=== PATIENT | female | born 1960 | race Caucasian/White ===

== ENCOUNTER 2022-08-01 09:27 | Emergency (ER) | payer BC, SELFPAY ==
[2022-08-01] VITALS (7 sets, daily range): BP systolic 92–139; BP diastolic 63–88; PULSE 56–92; RESP 16–18; TEMP 36.2; O2SAT 91–98; BMI 29.1
--- NOTE | 2022-08-01 09:54 | CRLHL7_ITS ---
For Patients: As a result of the Century Cures Act, medical imaging exams and procedure reports are released immediately into your electronic medical record. You may view this report before your referring provider. If you have questions, please contact your health care provider. HISTORY: Lower back pain. Right-sided abdominal tenderness. History of cholecystectomy. TECHNIQUE: CT abdomen and pelvis with IV contrast. 85 mL [id number] IV. COMPARISON: None. FINDINGS: Abdomen: Cholecystectomy. Mild intrahepatic bile duct dilation compatible with postcholecystectomy state. 4.9 cm cyst in the left lobe of the liver. No pancreatic mass or pancreatic duct dilation. No spleen lesions. Spleen is normal size. No adrenal nodules. Kidneys enhance symmetrically. No renal mass. No hydronephrosis. No dilated bowel. Colonic diverticulosis. Appendix is unremarkable. No free fluid. No lymphadenopathy. Mild atherosclerosis. Abdominal aorta is normal caliber. Pelvis: Uterus is absent. No lymphadenopathy. Musculoskeletal: Degenerative changes of the spine and hips. Lower chest: Mild atelectasis in both lung bases. IMPRESSION: 1. No acute abnormality in the abdomen or pelvis. 2. Colonic diverticulosis. Please note that all CT scans at this facility use dose modulation, iterative reconstruction, and/or weight-based dosing when appropriate to reduce radiation dose to as low as reasonably achievable. Dictated by Gulshan Alcantar MD @ 08/01/2022 12:38:51 PM (Electronically Signed)
[2022-08-01 10:12] LABS: Lactate* 1.4 mmol/L (0.5-1.9)
[2022-08-01 10:13] LABS: Basophils Absolute Auto 0.03 K/uL (0.00-0.30); Basophils Percent Auto 0.4 % (0.0-3.0); Eosinophils Absolute Auto 0.34 K/uL (0.00-0.50); Eosinophils Percent Auto 4.7 % (0.0-7.0); Hematocrit 43.6 % (33.0-51.0); Hemoglobin* 14.9 gm/dL (12.0-16.0); Lymphocytes Absolute Auto 1.72 K/uL (0.90-2.90); Mean Corpuscular HGB Conc 34 gm/dL (32-36); Mean Corpuscular Hemoglobin 31 pg (26-34); Mean Corpuscular Volume 90 fL (80-100); Monocytes Percent Auto 5.8 % (0.0-11.0); Neutrophils Absolute Auto 4.67 K/uL (1.7-7.0); Neutrophils Percent Auto 65.1 % (42.0-72.0); Platelet Count* 295 K/uL (140-440); Red Blood Count 4.84 m/uL (4.00-5.20); White Blood Count* 7.18 K/uL (4.50-11.00)
[2022-08-01 10:14] LABS: Slide Review Reflex No
[2022-08-01] MEDS: 0.9 % SODIUM CHLORIDE 1000 ml 1,000 ML IV (10:24)
[2022-08-01 10:26] LABS: Appearance Urine Clear (Clear); Bilirubin Urine Negative (Negative); Blood Urine Negative (Negative); Color Urine Yellow (Yellow); Glucose Urine Negative (Negative); Ketones Urine Negative (Negative); Leukocyte Esterase Urine Trace (Negative); Nitrite Urine Negative (Negative); Protein Urine Negative (Negative); Urobilinogen Urine 0.2 (0.2-1.0); pH Urine 6.5 (5.0-8.5)
[2022-08-01] MEDS: ONDANSETRON 2 MG/ML inj 4 MG IVP (10:27)
[2022-08-01] MEDS: KETOROLAC 30 MG/ML inj IVP (10:29)
[2022-08-01] MEDS: HYDROmorphone 0.5 mg/0.5 ml inj 1 MG IVP (10:31)
[2022-08-01 10:34] LABS: Bacteria Urine Few; RBC Urine 0-2 (0-2); Squamous Epithelial Cell Urine Few (None-Few)
[2022-08-01 10:35] LABS: Albumin* 4.5 g/dL (3.3-5.0); Chloride* 105 mmol/L (96-114); Sodium* 139 mmol/L (135-149)
[2022-08-01 10:36] LABS: Potassium* 3.9 mmol/L (3.6-5.1)
[2022-08-01 10:38] LABS: Aspartate Amino Transferase* 24 U/L (12-35); Bilirubin Direct* 0.1 mg/dL (0.0-0.5); Bilirubin Total* 0.5 mg/dL (0.1-1.5); Blood Urea Nitrogen* 19 mg/dL (7-30); Carbon Dioxide* 28 mmol/L (20-32); Creatinine* 0.8 mg/dL (0.5-1.5); Est. Creatinine Clearance* 53.16; Estimated Glomerular Filt Rate 84 ml/min; Total Protein* 7.4 g/dL (6.0-8.3)
[2022-08-01 10:39] LABS: Alanine Aminotransferase* 17 U/L (4-35); Alkaline Phosphatase* 98 U/L (40-150); Calcium* 9.5 mg/dL (8.4-10.6); Glucose* 100 mg/dL (60-115); Lipase* 86 U/L (23-300)
[2022-08-01 11:03] LABS: PCR FLU A Negative PCR FLU A (Negative); PCR FLU B Negative PCR FLU B (Negative); PCR RSV Negative PCR RSV (Negative)
[2022-08-01 11:08] LABS: C Reactive Protein* < 0.5 mg/dL (0.5-1.0)
--- NOTE | 2022-08-01 11:12 | ED_ITS ---
HPI - Back Pain/Injury General Date Seen: 08/01/22 Chief Complaint: Back Injury/Pain Stated Complaint: Low back pain Time Seen by Provider: 08/01/22 09:37 Source: patient and family Mode of arrival: ambulatory Limitations: no limitations History of Present Illness HPI Narrative: Patient is a 62-year-old female who presents here with lower back pain she has had since yesterday, not from an injury or fall, she had an episode of diarrhea while she was in eating breakfast yesterday and the pain is been increased since this episode. The diarrhea episode is and out of the ordinary for her as she occasionally has this, the back pain is. She describes pain in her lower back right were much worse than left, that radiates around her least pain in her right lower quadrant also too. She feels hot and cold, but no overt fever, she has had no nausea vomiting no further bowel movements denies any dysuria frequency, rashes, she denies any specific radiculopathy or pain that comes down the leg. No significant past history of leg or back issues. Presents here with her . History of a previous cholecystectomy, history of tubal ligation. MD elicited complaint: back pain Similar Symptoms Previously: No Location: lumbar spine Radiation: abdomen Exacerbating factors: none Relieving factors: none Associated symptoms: denies other symptoms Related Data Home Medications Medication Instructions Recorded Confirmed amlodipine 10 mg tablet 10 mg PO DAILY 08/01/22 08/01/22 atorvastatin 40 mg tablet 40 mg PO DAILY 08/01/22 08/01/22 citalopram 10 mg tablet 10 mg PO DAILY 08/01/22 08/01/22 gabapentin 300 mg capsule 300 mg PO DAILY 08/01/22 08/01/22 hydrochlorothiazide 12.5 mg capsule 12.5 mg PO DAILY 08/01/22 08/01/22 levothyroxine 75 mcg tablet 75 mcg PO DAILY 08/01/22 08/01/22 (Levo-T) losartan 100 mg tablet 100 mg PO DAILY 08/01/22 08/01/22 metoprolol succinate 25 mg 25 mg PO DAILY 08/01/22 08/01/22 tablet,extended release 24 hr oxybutynin chloride 5 mg 5 mg PO DAILY 08/01/22 08/01/22 tablet,extended release 24 hr Allergies Allergy/AdvReac Type Severity Reaction Status Date / Time codeine Allergy Mild hyper Verified 08/01/22 09:45 propoxyphene [From Darvon] Allergy Mild hyper Verified 08/01/22 09:45 Barbiturates Allergy Unknown Verified 08/01/22 09:45 penicillin V Allergy Unknown Verified 08/01/22 09:45 Sulfa (Sulfonamide Allergy Unknown Verified 08/01/22 09:45 Antibiotics) tetracycline Allergy Unknown Verified 08/01/22 09:45 prochlorperazine Allergy Vomiting Verified 08/01/22 09:45 [From Compazine] Review of Systems Status of ROS: Reports: 10 or more systems reviewed and unremarkable except as noted in History and below [facility] Social History Smoking Status: Never smoker Do you use any of these nicotine containing products: None Second hand tobacco smoke exposure: No How often do you have a drink containing alcohol: never How often do you have six or more drinks on one occasion: Never AUDIT-C Alcohol total score: 0 Non-prescribed substance use: denies use service: No Exam Narrative: Exam Narrative: Patient is seen in room 2 she is in [id number] distress, any laying backward since exacerbate her discomfort. She notes that her pain is more the back and right lower quadrant, Pupils are equal round reactive to light there is no scleral icterus redness or TMs are normal her oropharynx is normal neck is supple full range of motion, no meningismus, her chest is clear bilaterally with no wheezing crackles noted no signs of respiratory distress,. [id number] are normal there is no S3- S4 clicks murmurs or gallops noted. She has tenderness mild to moderate noted in the right lower quadrant, right-sided back pain is noted too. No peritoneal signs quiet bowel sounds are normally. SLR is are normal the 45? bilaterally, reflexes are normal in her lower extremities, cap refill is normal. Const: Vital Signs, click to edit/add: Vital Signs - 24 hr 08/01/22 09:29 08/01/22 11:00 08/01/22 11:30 Temperature 97.2 F L Pulse Rate [Right Pulse Oximeter] 70 60 67 Respiratory Rate 18 Blood Pressure [Ri ght Upper Arm] 139/88 105/78 116/73 Pulse Oximetry 98 97 94 Oxygen Delivery Me thod Room Air Room Air Room Air 08/01/22 12:18 08/01/22 12:30 08/01/22 12:45 Temperature Pulse Rate [Right Pulse Oximeter] 92 56 L 73 Respiratory Rate 18 16 18 Blood Pressure [Ri ght Upper Arm] 102/68 92/63 Pulse Oximetry 92 91 95 Oxygen Delivery Me thod Room Air Room Air Room Air Documenting provider has reviewed patient's vital signs: yes Course Course Hospital Course: Patient's pain improved with the use of the medications, her lab tests are all normal, including her CBC basic CRP and also UA. Further her CT scan of her abdomen did not show any acute intra-abdominal abnormalities, she does have a couple disc bulges noted on her CT at L4-L5 and at L5-S1 At this point I think it would be reasonable for her to go home, I did recheck her examination she still does not have signs of a significant radiculopathy although I suspect there is least a little bit of 1 going on with the radiation to the right lower quadrant. We will try some Percocet along with some prednisone for her discomfort comfort. Went over the signs and symptoms of worsening conditioning. I do recommend that she follow up with her primary care physician Dr.Rod Li Vital Signs Vital signs: Initial Vital Signs Temperature 97.2 F L 08/01/22 09:29 Temperature Source Temporal Artery Scan 08/01/22 09:29 Pulse Rate 70 08/01/22 09:29 Blood Pressure 139/88 08/01/22 09:29 Blood Pressure Mean 105 08/01/22 09:29 Blood Pressure Position Sitting 08/01/22 09:29 Pulse Oximetry 98 08/01/22 09:29 Oxygen Delivery Method 08/01/22 09:29 Vital Signs Temperature 97.2 F L 08/01/22 09:29 Pulse Rate 70 08/01/22 09:29 Blood Pressure 139/88 08/01/22 09:29 Pulse Oximetry 98 08/01/22 09:29 Oxygen Delivery Method 08/01/22 09:29 Temperature 97.2 F L 08/01/22 09:29 Pulse Rate 73 08/01/22 12:45 Respiratory Rate 18 08/01/22 12:45 Blood Pressure 92/63 08/01/22 12:30 Pulse Oximetry 95 08/01/22 12:45 Oxygen Delivery Method 08/01/22 12:45 MDM - Back Pain/Injury MDM Narrative Medical decision making narrative: During the evaluation of this patient I considered multiple differential diagnosis including life-threatening differentials which are appendicitis, aortic aneurysm, mesenteric ischemia, bowel perforation, ectopic , volvulus and bowel obstruction, other differential diagnosis include but are not limited to inflammatory bowel disease, cholecystitis, pancreatitis, hepatitis, gastritis, GERD, diverticulitis, peptic ulcer disease, pyelonephritis/UTI, renal colic/stone, pelvic inflammatory disease, cervicitis, endometritis, intrauterine , dysfunctional uterine bleeding, ovarian cyst/torsion, spontaneous as well as other etiologies Life-threatening differential diagnosis considered include: Cauda equina an epidural abscess, other differential diagnosis considered includes sprain, contusion, nerve root entrapment, radiculopathy, muscle spasm, urolithiasis, lumbar fracture, pyelonephritis, appendicitis, biliary colic, as well as other etiologies. The patient denies saddle anesthesia bowel or bladder incontinence or lower extremity weakness, recent weight loss, or history of malignancy. Medical Records Attestation: I reviewed the patient's medical records. Lab Data Attestation: I reviewed the patient's lab results. Labs: Lab Results 08/01/22 08/01/22 08/01/22 Range/Units 10:00 10:00 10:00 WBC 7.18 (4.50-11.00) K/uL RBC 4.84 (4.00-5.20) m/uL Hgb 14.9 (12.0-16.0) gm/dL Hct 43.6 (33.0-51.0) % MCV 90 (80-100) fL MCH 31 (26-34) pg MCHC 34 (32-36) gm/dL RDW Coeff of Sydnie 12.0 (11.5-15.5) % Plt Count 295 (140-440) K/uL Neut % (Auto) 65.1 (42.0-72.0) % Lymph % (Auto) 24.0 (20-44) % Bay % (Auto) 5.8 (0.0-11.0) % Eos % (Auto) 4.7 (0.0-7.0) % Baso % (Auto) 0.4 (0.0-3.0) % Neut # (Auto) 4.67 (1.7-7.0) K/uL Lymph # (Auto) 1.72 (0.90-2.90) K/uL Bay # (Auto) 0.40 (0.00-0.90) K/UL Eos # (Auto) 0.34 (0.00-0.50) K/uL Baso # (Auto) 0.03 (0.00-0.30) K/uL Abs Immat Gran (auto) 0.00 (0.00-0.30) K/uL Sodium 139 (135-149) mmol/L Potassium 3.9 (3.6-5.1) mmol/L Chloride 105 (96-114) mmol/L Carbon Dioxide 28 (20-32) mmol/L BUN 19 (7-30) mg/dL Creatinine 0.8 (0.5-1.5) mg/dL Estimated Creat Clear 53.16 Estimated GFR 84 ml/min Glucose 100 (60-115) mg/dL Lactate 1.4 (0.5-1.9) mmol/L Calcium 9.5 (8.4-10.6) mg/dL Total Bilirubin 0.5 (0.1-1.5) mg/dL Direct Bilirubin 0.1 (0.0-0.5) mg/dL AST 24 (12-35) U/L ALT 17 (4-35) U/L Alkaline Phosphatase 98 (40-150) U/L C-Reactive Protein < 0.5 L (0.5-1.0) mg/dL Total Protein 7.4 (6.0-8.3) g/dL Albumin 4.5 (3.3-5.0) g/dL Lipase 86 (23-300) U/L Urine Color (Yellow) Urine Appearance (Clear) Urine pH (5.0-8.5) Ur Specific [place] (1.000-1.030) Urine Protein (Negative) Urine Glucose (UA) (Negative) Urine Ketones (Negative) Urine Blood (Negative) Urine Nitrite (Negative) Urine Bilirubin (Negative) Urine Urobilinogen (0.2-1.0) Ur Leukocyte Esterase (Negative) Urine RBC (0-2) Urine WBC (0-5) Ur Squamous Epith Cells (None-Few) Urine Bacteria (None) SARS-CoV-2 (PCR) (Negative) Influenza Type A (PCR) (Negative) Influenza Type B (PCR) (Negative) RSV (PCR) (Negative) 08/01/22 08/01/22 Range/Units 10:15 10:15 WBC (4.50-11.00) K/uL RBC (4.00-5.20) m/uL Hgb (12.0-16.0) gm/dL Hct (33.0-51.0) % MCV (80-100) fL MCH (26-34) pg MCHC (32-36) gm/dL RDW Coeff of Sydnie (11.5-15.5) % Plt Count (140-440) K/uL Neut % (Auto) (42.0-72.0) % Lymph % (Auto) (20-44) % Bay % (Auto) (0.0-11.0) % Eos % (Auto) (0.0-7.0) % Baso % (Auto) (0.0-3.0) % Neut # (Auto) (1.7-7.0) K/uL Lymph # (Auto) (0.90-2.90) K/uL [place] # (Auto) (0.00-0.90) K/UL Eos # (Auto) (0.00-0.50) K/uL Baso # (Auto) (0.00-0.30) K/uL Abs Immat Gran (auto) (0.00-0.30) K/uL Sodium (135-149) mmol/L Potassium (3.6-5.1) mmol/L Chloride (96-114) mmol/L Carbon Dioxide (20-32) mmol/L BUN (7-30) mg/dL Creatinine (0.5-1.5) mg/dL Estimated Creat Clear Estimated GFR ml/min Glucose (60-115) mg/dL Lactate (0.5-1.9) mmol/L Calcium (8.4-10.6) mg/dL Total Bilirubin (0.1-1.5) mg/dL Direct Bilirubin (0.0-0.5) mg/dL AST (12-35) U/L ALT (4-35) U/L Alkaline Phosphatase (40-150) U/L C-Reactive Protein (0.5-1.0) mg/dL Total Protein (6.0-8.3) g/dL Albumin (3.3-5.0) g/dL Lipase (23-300) U/L Urine Color Yellow (Yellow) Urine Appearance Clear (Clear) Urine pH 6.5 (5.0-8.5) Ur Specific [place] 1.010 (1.000-1.030) Urine Protein Negative (Negative) Urine Glucose (UA) Negative (Negative) Urine Ketones Negative (Negative) Urine Blood Negative (Negative) Urine Nitrite Negative (Negative) Urine Bilirubin Negative (Negative) Urine Urobilinogen 0.2 (0.2-1.0) Ur Leukocyte Esterase Trace A (Negative) Urine RBC 0-2 (0-2) Urine WBC 2-5 (0-5) Ur Squamous Epith Cells Few (None-Few) Urine Bacteria Few A (None) SARS-CoV-2 (PCR) Negative SARS-CoV-2 (Negative) Influenza Type A (PCR) Negative PCR FLU A (Negative) Influenza Type B (PCR) Negative PCR FLU B (Negative) RSV (PCR) Negative PCR RSV (Negative) Discharge Plan Discharge Clinical Impression: Lumbar radiculopathy, Strain of lumbar region Patient Disposition: Home w/ Parent or Adult Condition: Improved Instructions: Low Back Strain (ED), Lumbar Radiculopathy (ED), Lower Back Exercises (ED), Cold Compress or Soak (ED) Prescriptions: No Action hydrochlorothiazide 12.5 mg capsule 12.5 mg PO DAILY metoprolol succinate 25 mg tablet extended release 24 hr 25 mg PO DAILY losartan 100 mg tablet 100 mg PO DAILY amlodipine 10 mg tablet 10 mg PO DAILY atorvastatin 40 mg tablet 40 mg PO DAILY levothyroxine [Levo-T] 75 mcg tablet 75 mcg PO DAILY citalopram 10 mg tablet 10 mg PO DAILY gabapentin 300 mg capsule 300 mg PO DAILY oxybutynin chloride 5 mg tablet extended release 24hr 5 mg PO DAILY Follow Up/Referrals: Abdulaziz Li MD [Primary Care Provider] - Stand Alone Forms: [employer] Info Instructions
[2022-08-01 11:42] LABS: SARS PCR* Negative SARS-CoV-2 (Negative)
== END 2022-08-01 13:20 | disposition home or self-care (01) ==
PROVIDERS: Emergency Provider Family Medicine; PCP Family Medicine
DX: M54.16 Radiculopathy, lumbar region (principal); S39.012A Strain of muscle, fascia and tendon of lower back, initial encounter
CPT/HCPCS: 36415; 74177; 80048; 80076; 81001; 83605; 83690; 85025; 86140; 87040; 87086; 87502; 87634; 87635; 96374; 96375; 99284; J1170; J1885; J2405; J7030; Q9967

== ENCOUNTER 2024-07-10 14:16 | Emergency (ER) | payer BC, SELFPAY ==
[2024-07-10 14:21] VITALS: BP 135/82; PULSE 60; RESP 16; TEMP 36.7; O2SAT 97; BMI 30.3
--- NOTE | 2024-07-10 14:31 | ED.GENADULT ---
HPI - General Adult General Date Seen: 07/10/24 Chief complaint: Chest Pain Stated complaint: Chest discomfort Time Seen by Provider: 07/10/24 14:30 History of Present Illness HPI narrative: 64-year-old female presenting to the ER today for chest discomfort. She has a past medical history of hypertension, dyslipidemia, hypothyroidism, restless leg syndrome. She also has a long history of peptic ulcer disease and for apparently even had ulcers as a young child. She is not currently on any anti acid medication. She has been noting symptoms of substernal chest discomfort radiating through to the back off and on for the past several weeks. They tend to happen a couple times a week and tend to happen after food. She believes they are probably related to acid reflux. Typically they get better when she takes [id number] antacids. She has not been to her doctor for these symptoms yet. Today she is having similar symptoms lasting much longer than normal. Symptoms started this morning after breakfast and has been persistent since then.. She developed some discomfort in the center of her chest that she felt was probably acid reflux. She took an [id number] antacid but it did not help. She still has the pain in the center of her chest which radiates through between her shoulder blades. She has been experiencing some acid reflux off and on for the past couple of weeks. Sometimes she feels little bit nauseous but has not vomited. She had 1 normal bowel movement today. It was nonbloody and nonmelanotic. All bowel movements recently have been normal. She is not having any fever. No cough. No shortness of breath. No palpitations. No swelling in her legs. No recent travel. No history of DVT or PE. Related Data Home Medications ?Medication ?Instructions ?Recorded ?Confirmed amlodipine 10 mg tablet 10 mg PO DAILY 08/01/22 07/10/24 atorvastatin 40 mg tablet 40 mg PO DAILY 08/01/22 07/10/24 citalopram 10 mg tablet 10 mg PO DAILY 08/01/22 07/10/24 gabapentin 300 mg capsule 300 mg PO DAILY 08/01/22 07/10/24 hydrochlorothiazide 12.5 mg capsule 12.5 mg PO DAILY 08/01/22 08/01/22 levothyroxine 75 mcg tablet 75 mcg PO DAILY 08/01/22 07/10/24 (Levo-T) losartan 100 mg tablet 100 mg PO DAILY 08/01/22 07/10/24 metoprolol succinate 25 mg 25 mg PO DAILY 08/01/22 07/10/24 tablet,extended release 24 hr oxybutynin chloride 5 mg 5 mg PO DAILY 08/01/22 07/10/24 tablet,extended release 24 hr ropinirole 0.5 mg tablet 0.5 mg PO QPM 07/10/24 07/10/24 Previous Rx's ?Medication ?Instructions ?Recorded omeprazole 40 mg capsule,delayed 40 mg PO DAILY #30 caps 07/10/24 release sucralfate 1 gram tablet (Carafate) 1 g PO TID PRN #60 tabs 07/10/24 Allergies Allergy/AdvReac Type Severity Reaction Status Date / Time codeine Allergy Mild hyper Verified 07/10/24 14:26 propoxyphene [From Darvon] Allergy Mild hyper Verified 07/10/24 14:26 Barbiturates Allergy Unknown Verified 07/10/24 14:26 penicillin V Allergy Unknown Verified 07/10/24 14:26 Sulfa (Sulfonamide Allergy Unknown Verified 07/10/24 14:26 Antibiotics) tetracycline Allergy Unknown Verified 07/10/24 14:26 levofloxacin [From Levaquin] Allergy Verified 07/10/24 14:26 prochlorperazine Allergy Vomiting Verified 07/10/24 14:26 [From Compazine] [facility] Social History Smoking Status: Never smoker Do you use any of these nicotine containing products: None Second hand tobacco smoke exposure: No How often do you have a drink containing alcohol: never How often do you have six or more drinks on one occasion: Never AUDIT-C Alcohol total score: 0 Non-prescribed substance use: denies use service: No Exam Narrative: Exam Narrative: Constitutional: Appears well-developed and well-nourished. Alert. Conversant. Non toxic. HENT: Head: Atraumatic. Nose: Nose normal. Mouth/Throat: Oral mucosa is clear and moist. no trismus. Pharynx normal. Tonsils symmetric. No tonsillar enlargement, erythema, or exudate. Eyes: Conjunctivae normal. EOM normal. Pupils equal, round, and reactive to light. No scleral icterus. Neck: Normal range of motion. Neck supple. No tracheal deviation present. No JVD Cardiovascular: Normal rate, regular rhythm. No gallop. No friction rub. No murmur heard. Symmetric radial and PT artery pulses Pulmonary/Chest: Effort normal. No stridor. No respiratory distress. No wheezes. No rales. No rhonchi . No tenderness. Abdominal: Soft. Bowel sounds normal. RUE: Normal range of motion. No tenderness. No deformity LUE: Normal range of motion. No tenderness. No deformity RLE: Normal range of motion. No edema. No tenderness. No deformity LLE: Normal range of motion. No edema. No tenderness. No deformity Lymph: No cervical adenopathy. Neurological: Alert and oriented to person, place, and time. Normal strength. CN II-VII intact. No sensory deficit. GCS eye subscore is 4. GCS verbal subscore is 5. GCS motor subscore is 6. Normal coordination Skin: Skin is warm and dry. No rash noted. No pallor. Normal capillary refill. Psychiatric: Normal mood. Normal affect. Const: Vital Signs, click to edit/add: Vital Signs - 24 hr 07/10/24 14:21 Temperature 98.1 F Pulse Rate [Pulse Oximeter] 60 Respiratory Rate 16 Blood Pressure [Ri t Upper Arm] 135/82 Pulse Oximetry 97 Oxygen Delivery Me thod Room Air Course Vital Signs Vital signs: Initial Vital Signs Temperature 98.1 F 07/10/24 14:21 Temperature Source Temporal Artery Scan 07/10/24 14:21 Pulse Rate 60 07/10/24 14:21 Respiratory Rate 16 07/10/24 14:21 Blood Pressure 135/82 07/10/24 14:21 Blood Pressure Mean 99 07/10/24 14:21 Blood Pressure Position Sitting 07/10/24 14:21 Pulse Oximetry 97 07/10/24 14:21 Oxygen Delivery Method Room Air 07/10/24 14:21 Vital Signs Temperature 98.1 F 07/10/24 14:21 Pulse Rate 60 07/10/24 14:21 Respiratory Rate 16 07/10/24 14:21 Blood Pressure 135/82 07/10/24 14:21 Pulse Oximetry 97 07/10/24 14:21 Oxygen Delivery Method Room Air 07/10/24 14:21 Temperature 98.1 F 07/10/24 14:21 Pulse Rate 60 07/10/24 14:21 Respiratory Rate 16 07/10/24 14:21 Blood Pressure 135/82 07/10/24 14:21 Pulse Oximetry 97 07/10/24 14:21 Oxygen Delivery Method Room Air 07/10/24 14:21 Medications Administered Medications: Discontinued Medications Generic Name Dose Route Start Last Admin Trade Name Adam PRN Reason Stop Dose Admin Lidocaine/Aluminum/Magnesium/Simeth 30 ml 07/10/24 14:32 07/10/24 14:47 Gi Cocktail (Visc Lido/Antacid) 30 Ml PO 07/10/24 14:33 30 ml ONCE ONE Administration Medical Decision Making MDM Narrative Medical decision making narrative: This patient presents to the ER today for evaluation of chest pain that began after breakfast this morning and persisted throughout the day since then. Differential was broad. No evidence of palpitations, syncope or other cardiac dysrhythmia. We considered possible ACS, however workup with EKG and troponin is negative. Given time since onset of symptoms, I do not think the patient needs to be admitted for further sets of enzymes. EKG shows no evidence for pericarditis. Clinical presentation not suggestive of myocarditis. Chest x-ray shows no evidence for pneumonia, pneumothorax, pulmonary edema, pleural effusion, rib fracture, cardiomegaly. Mediastinum is normal on the x-ray. The patient has no ripping or tearing pain through to the back and has symmetric pulses on exam, no other acute neuro findings so I doubt aortic dissection. Risk of radiation and contrast exposure would outweigh the benefit of CT angiogram. We considered PE for this patient. She is overall low risk. Other than H is negative by PERC. There is no hypoxia, tachycardia, so would hold off on D-dimer testing or CT PA for now. No wheezing or bronchospasm to suggest COPD/asthma. No signs of chest wall cellulitis, shingles, injury. She does have a long history of stomach acid problems and has been having episodes of GERD for the past several weeks leading up to this. She believes that her current pain is probably related to his office again today. She did have improvement with GI cocktail. At this point with workup for other conditions so far reassuring, I do not think she needs hospitalization. Will try her empirically on a course of PPI and also Carafate that she can use p.r.n.. She follow-up with her doctors at the [facility] soon as possible for re-evaluation and may need EGD to confirm endoscopy. With reasonable clinical confidence, I think the patient is safe for outpatient follow up. Discussed return precautions, especially with worsening or changing pain.. Questions answered. Patient voices comfort with the plan. Lab Data Labs: Lab Results 07/10/24 07/10/24 Range/Units 14:32 15:00 WBC 9.48 (4.50-11.00) K/uL RBC 4.58 (4.00-5.20) m/uL Hgb 13.9 (12.0-16.0) gm/dL Hct 42.4 (33.0-51.0) % MCV 93 (80-100) fL MCH 30 (26-34) pg MCHC 33 (32-36) gm/dL RDW Coeff of Sydnie 14.1 (11.5-15.5) % Plt Count 281 (140-440) K/uL Neut % (Auto) 58.7 (42.0-72.0) % Lymph % (Auto) 31.8 (20-44) % Hamlin % (Auto) 5.7 (0.0-11.0) % Eos % (Auto) 3.1 (0.0-7.0) % Baso % (Auto) 0.6 (0.0-3.0) % Neut # (Auto) 5.57 (1.7-7.0) K/uL Lymph # (Auto) 3.01 H (0.90-2.90) K/uL Hamlin # (Auto) 0.50 (0.00-0.90) K/UL Eos # (Auto) 0.29 (0.00-0.50) K/uL Baso # (Auto) 0.06 (0.00-0.30) K/uL Abs Immat Gran (auto) 0.01 (0.00-0.30) K/uL Imm/Tot Granulo (auto) 0.1 % Sodium 139 (135-149) mmol/L Potassium 3.5 L (3.6-5.1) mmol/L Chloride 106 (96-114) mmol/L Carbon Dioxide 27 (20-32) mmol/L Anion Gap 6 L (7-15) mEq/L BUN 18 (7-30) mg/dL Creatinine 0.8 (0.5-1.5) mg/dL Estimated Creat Clear 51.81 Estimated GFR 83 ml/min Glucose 103 (60-115) mg/dL Calcium 9.3 (8.4-10.6) mg/dL Total Bilirubin 0.2 (0.1-1.5) mg/dL AST 29 (12-35) U/L ALT 18 (4-35) U/L Alkaline Phosphatase 101 (40-150) U/L Total Protein 7.1 (6.0-8.3) g/dL Albumin 4.3 (3.3-5.0) g/dL Lipase 134 (23-300) U/L POC Troponin I 0.01 (0.01-0.04) ng/ml Imaging Data Chest x-ray: Attestation: I have reviewed the pertinent imaging results. Radiologist's impression: IMPRESSION: No acute thoracic findings. ECG Data Attestation: I personally reviewed and interpreted this ECG as follows: Interpretation: Sinus bradycardia Rate: 56 FL: 182 QRS axis: Normal axis. No pathologic Q-waves. ST segment/T wave: No ST segment elevation or depression QTc: 449 Discharge Plan Discharge Clinical Impression: Chest pain Patient Disposition: Home, Self-Care Condition: Stable Instructions: GERD (Gastroesophageal Reflux Disease) (DC) Additional Instructions: As we discussed, so further workup for your heart looks good. No signs of heart attack. We suspect that your pain is probably being caused by acid refluxing into her esophagus. At this time we have not been able to prove that stomach acid is the cause of your pain. It is very important for you to follow-up with her doctor at the [facility] and arrange an endoscopy to fully evaluate your esophagus. In the meantime, come back to the ER if you have worsening pain, trouble breathing, dizziness or fainting, high fever, or any worsening symptoms. Use the Prilosec once every day to help reduce stomach acid and refluxing acid. You can also use the Carafate as needed if you are having episodes of pain. If you have more severe pain, or any other concerning symptoms remember to come back to the ER right away. Prescriptions: New omeprazole 40 mg capsule,delayed release(DR/EC) 40 mg PO DAILY Qty: 30 2RF sucralfate [Carafate] 1 gram tablet 1 g PO TID PRNQty: 60 0RF No Action hydrochlorothiazide 12.5 mg capsule 12.5 mg PO DAILY metoprolol succinate 25 mg tablet extended release 24 hr 25 mg PO DAILY losartan 100 mg tablet 100 mg PO DAILY amlodipine 10 mg tablet 10 mg PO DAILY atorvastatin 40 mg tablet 40 mg PO DAILY levothyroxine [Levo-T] 75 mcg tablet 75 mcg PO DAILY citalopram 10 mg tablet 10 mg PO DAILY gabapentin 300 mg capsule 300 mg PO DAILY oxybutynin chloride 5 mg tablet extended release 24hr 5 mg PO DAILY ropinirole 0.5 mg tablet 0.5 mg PO QPM Follow Up/Referrals: Abdulaziz Quintero MD [Primary Care Provider] - Stand Alone Forms: [facility] Info Instructions
[2024-07-10] MEDS: GI COCKTAIL (VISC LIDO/ANTACID) 30 ML PO (14:47)
[2024-07-10 15:17] LABS: Basophils Absolute Auto 0.06 K/uL (0.00-0.30); Basophils Percent Auto 0.6 % (0.0-3.0); Eosinophils Absolute Auto 0.29 K/uL (0.00-0.50); Eosinophils Percent Auto 3.1 % (0.0-7.0); Hematocrit 42.4 % (33.0-51.0); Hemoglobin* 13.9 gm/dL (12.0-16.0); Immature Granulocytes Abs Auto 0.01 K/uL (0.00-0.30); Immature Granulocytes Pct Auto 0.1 %; Lymphocytes Absolute Auto 3.01 K/uL (0.90-2.90); Lymphocytes Percent Auto 31.8 % (20-44); Mean Corpuscular HGB Conc 33 gm/dL (32-36); Mean Corpuscular Hemoglobin 30 pg (26-34); Mean Corpuscular Volume 93 fL (80-100); Monocytes Percent Auto 5.7 % (0.0-11.0); Neutrophils Absolute Auto 5.57 K/uL (1.7-7.0); Neutrophils Percent Auto 58.7 % (42.0-72.0); Platelet Count* 281 K/uL (140-440); RDW Coefficient of Variation % 14.1 % (11.5-15.5); Red Blood Count 4.58 m/uL (4.00-5.20); White Blood Count* 9.48 K/uL (4.50-11.00)
[2024-07-10 15:30] LABS: Troponin, Point-of-Care* 0.01 ng/ml (0.01-0.04)
[2024-07-10 15:31] LABS: Slide Review Reflex No
[2024-07-10 15:32] LABS: Albumin* 4.3 g/dL (3.3-5.0); Chloride* 106 mmol/L (96-114); Potassium* 3.5 mmol/L (3.6-5.1); Sodium* 139 mmol/L (135-149)
[2024-07-10 15:34] LABS: Creatinine* 0.8 mg/dL (0.5-1.5); Est. Creatinine Clearance* 51.81; Estimated Glomerular Filt Rate 83 ml/min
[2024-07-10 15:35] LABS: Alanine Aminotransferase* 18 U/L (4-35); Alkaline Phosphatase* 101 U/L (40-150); Anion Gap 6 mEq/L (7-15); Aspartate Amino Transferase* 29 U/L (12-35); Bilirubin Total* 0.2 mg/dL (0.1-1.5); Blood Urea Nitrogen* 18 mg/dL (7-30); Calcium* 9.3 mg/dL (8.4-10.6); Carbon Dioxide* 27 mmol/L (20-32); Glucose* 103 mg/dL (60-115); Lipase* 134 U/L (23-300); Total Protein* 7.1 g/dL (6.0-8.3)
--- NOTE | 2024-07-10 15:56 | CRLHL7_ITS ---
For Patients: As a result of the Century Cures Act, medical imaging exams and procedure reports are released immediately into your electronic medical record. You may view this report before your referring provider. If you have questions, please contact your health care provider. INDICATION: Chest pain COMPARISON: None. TECHNIQUE: Two radiographic view(s) of the chest. FINDINGS: Surgical clips project over the right upper abdominal quadrant. No pleural effusion. No pneumothorax. No definite focal pulmonary consolidation. Normal heart size. There are osseous degenerative changes. IMPRESSION: No acute thoracic findings. Dictated by Gulshan High MD @ 07/10/2024 4:46:37 PM (Electronically Signed)
== END 2024-07-10 17:31 | disposition home or self-care (01) ==
PROVIDERS: Emergency Provider Emergency Medicine; PCP Family Medicine
DX: R07.9 Chest pain, unspecified (principal)
CPT/HCPCS: 36415; 71046; 80053; 83690; 84484; 85025; 85379; 93005; 99284; 99285; A9270